=== PATIENT | female | born 1970 | race Caucasian/White ===

== ENCOUNTER 2018-01-22 18:50 | Emergency (ER) | payer OTHER ==
[~2018-01-22] VITALS: Ht 167.6 cm; Wt 124.7 kg
[~2018-01-22 18:50] MED LIST: AVALIDE 300-12.1 TAB PO; AVAPRO75 MG; CIPRO500 MG PO; GLUMETZA1000 MG; NEURONTIN300 MG PO; NEURONTIN800 MG; NUCYNTA50 MG PO; TOPROL XL50 MG PO
[2018-01-22] MEDS ORDERED: VASOTEC20 M1 (19:06)
[2018-01-22] MEDS ORDERED: JANUVIA25 MG (19:08)
[2018-01-22] MEDS ORDERED: JANUVIA50 MG (19:08)
[2018-01-22] MEDS ORDERED: SKELAXIN800 MG PO (22:36)
== END 2018-01-22 22:54 | disposition home or self-care (01) ==
LOC: ER 18:50
DX: R10.32 Left lower quadrant pain (principal); Z93.2 Ileostomy status

== ENCOUNTER 2021-02-28 18:53 | Emergency (ER) | payer OTHER ==
[~2021-02-28] VITALS: Ht 165.1 cm; Wt 131.1 kg
[~2021-02-28 18:53] MED LIST changes: +JANUVIA25 MG; +JANUVIA50 MG; +SKELAXIN800 MG PO; +VASOTEC20 M1
[2021-02-28] MEDS ORDERED: DICLOFENAC SODI75 MG PO (19:14)
[2021-02-28] MEDS ORDERED: NORFLEX100MG PO (19:14)
== END 2021-02-28 19:29 | disposition home or self-care (01) ==
LOC: ER 18:53
DX: M54.59 Other low back pain (principal); M54.2 Cervicalgia

== ENCOUNTER 2021-12-19 06:45 | Emergency (ER) | payer OTHER ==
[~2021-12-19] VITALS: Ht 165.1 cm; Wt 128.8 kg
[~2021-12-19 06:45] MED LIST changes: +DICLOFENAC SODI75 MG PO; +NORFLEX100MG PO
[2021-12-19] MEDS ORDERED: GRALISE600 MG (07:12)
[2021-12-19] MEDS ORDERED: ZESTRIL10 M1 PO (07:13)
== END 2021-12-19 10:53 | disposition home or self-care (01) ==
LOC: ER 06:45
DX: U07.1 COVID-19 (principal); B34.9 Viral infection, unspecified; Z91.013 Allergy to seafood

== ENCOUNTER 2021-12-19 11:00 | Outpatient (CLI) | payer OTHER ==
[~2021-12-19 11:00] MED LIST changes: +GRALISE600 MG; +ZESTRIL10 M1 PO
== END 2021-12-19 12:00 | disposition home or self-care (01) ==
LOC: ASH CLINIC 11:00
PROVIDERS: ATTEND General Practice
DX: U07.1 COVID-19 (principal)